=== PATIENT | female | born 1985 ===

== ENCOUNTER 2020-06-24 04:58 | Inpatient (IN) | payer MEDICAID ==
[2020-06-24] MEDS ORDERED: Carboprost Tromethamine 250 MCG/1 ML Amp IM PRN (05:43)
[2020-06-24] MEDS ORDERED: Water For Irrigation,Sterile 1,000 ML Container IRR PRN (05:43)
[2020-06-24] MEDS ORDERED: Sodium Chloride 0.9% 10 ML Syringe FLUSH PRN (05:43)
[2020-06-24] MEDS ORDERED: Sodium Chloride 0.9% 10 ML SDV IV PRN (05:43)
[2020-06-24] MEDS ORDERED: Ondansetron 4 MG/2 ML SDV IVPUSH PRN (05:43)
[2020-06-24] MEDS ORDERED: Sodium Chloride 0.9% 2.5 ML Syringe FLUSH PRN (05:43)
[2020-06-24] MEDS ORDERED: Methylergonovine 0.2 MG/1 ML Amp IM PRN (05:43)
[2020-06-24] MEDS ORDERED: Misoprostol 200 MCG Tab PO PRN (05:43)
[2020-06-24] MEDS ORDERED: Lidocaine 1% 50 ML MDV INJECT PRN (05:43)
[2020-06-24] MEDS ORDERED: Tranexamic Acid 1,000 MG in Sodium Chloride 0.9% 100 ML IV PRN (05:43)
[2020-06-24] MEDS ORDERED: Nalbuphine 10 MG/1 ML Vial IVPUSH PRN (05:43)
[2020-06-24] MEDS ORDERED: Oxytocin/0.9 % Sodium Chloride 30 UNIT/500 ML BAG IV SCH ×2 (05:45→06:00)
[2020-06-24] MEDS ORDERED: Misoprostol 25 MCG (1/4 of 100 MCG) Tab VAG PRN (05:48)
[2020-06-24] MEDS ORDERED: Terbutaline 1 MG/ML SDV SUBCUT PRN (05:48)
[2020-06-24] MEDS ORDERED: Misoprostol 25 MCG (1/4 of 100 MCG) Tab PO PRN (05:48)
--- NOTE | 2020-06-24 07:30 | PCM.PREANE ---
Preanesthetic Assessment - Procedure Proposed Procedure: MIMI - Anesthesia/Transfusion/Family Hx Anesthesia History: Prior Anesthesia Without Reaction (Cholecystectomy under [facility] with no complications, multiple previous successful epidurals. One accidental dural puncture, pt recalls student placement with mult. attempts.) Family History of Anesthesia Reaction: No Transfusion History: No Prior Transfusion(s) Type of Transfusion Reactions: Reports: Unknown Additional History: Previous intubation for gallbladder, denies complications - Review of Systems General: No Symptoms Pulmonary: No Symptoms Cardiovascular: No Symptoms Gastrointestinal: No Symptoms Neurological: No Symptoms Other: Reports: None - Physical Assessment Height: 1.8 m ASA Class: 2 Mental Status: Alert & Oriented x3 Airway Class: Mallampati = 2 Dentition: Reports: Normal Dentition Thyro-Mental Finger Breadths: 4 Mouth Opening Finger Breadths: 3 ROM/Head Extension: Full Lungs: Normal Respiratory Effort Cardiovascular: Regular Rate, Regular Rhythm - Lab Values: Laboratory Last Values WBC 9.51 K/uL (4.0-11.0) 06/24/20 05:25 RBC 3.52 M/uL (4.30-5.90) L 06/24/20 05:25 Hgb 10.7 g/dL (12.0-16.0) L 06/24/20 05:25 Hct 33.2 % (36.0-46.0) L 06/24/20 05:25 MCV 94.3 fL (80.0-98.0) 06/24/20 05:25 MCH 30.4 pg (27.0-32.0) 06/24/20 05:25 MCHC 32.2 g/dL (31.0-37.0) 06/24/20 05:25 RDW Std Deviation 49.7 fl (28.0-62.0) 06/24/20 05:25 RDW Coeff of Esthela 14 % (11.0-15.0) 06/24/20 05:25 Plt Count 246 K/uL (150-400) 06/24/20 05:25 MPV 10.00 fL (7.40-12.00) 06/24/20 05:25 Nucleated RBC % 0.0 /100WBC 06/24/20 05:25 Nucleated RBCs # 0 K/uL 06/24/20 05:25 SARS-CoV-2 RNA (SANDRA) NEGATIVE (NEGATIVE) 06/24/20 05:38 Blood Type O POSITIVE 06/24/20 05:25 Antibody Screen NEGATIVE 06/24/20 05:25 - Allergies Allergies/Adverse Reactions: Allergies Allergy/AdvReac Type Severity Reaction Status Date / Time No Known Allergies Allergy Verified 06/24/20 05:42 - Anesthesia Plan Pre-Op Medication Ordered: None - Acknowledgements Anesthesia Type Planned: Epidural Pt an Appropriate Candidate for the Planned Anesthesia: Yes Alternatives and Risks of Anesthesia Discussed w Pt/Guardian: Yes Pt/Guardian Understands and Agrees with Anesthesia Plan: Yes Additional Comments: Discussed epidural risks, benefits, procedure, maintenance, and anesthesia coverage. All questions answered and concerns addressed. 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: Musculoskeletal History: Reports: None Neurological History: Reports: None Psychiatric History: Reports: None Endocrine/Metabolic History: Reports: None Hematologic History: Reports: None Immunologic History: Reports: None Oncologic (Cancer) History: Reports: None Dermatologic History: Reports: None - Infectious Disease History Infectious Disease History: Reports: Chicken Pox - Past Surgical History Head Surgeries/Procedures: Reports: None HEENT Surgical History: Reports: None Cardiovascular Surgical History: Reports: None Respiratory Surgical History: Reports: None GI Surgical History: Reports: None Female Surgical History: Reports: None Endocrine Surgical History: Reports: None Neurological Surgical History: Reports: None Musculoskeletal Surgical History: Reports: None Oncologic Surgical History: Reports: None Dermatological Surgical History: Reports: None - SUBSTANCE USE Smoking Status *Q: Never Smoker Second Hand Smoke Exposure: No Recreational Drug Use History: No - CURRENT (IN HOUSE) MEDS Current Meds: Current Medications Carboprost Tromethamine (Hemabate Ds) 250 mcg IM ASDIRECTED PRN PRN Reason: Post Hemorrhage Oxytocin/Sodium Chloride (Oxytocin 30 Unit/500 Ml-Ns) 30 unit in 500 mls @ 999 mls/hr IV TITRATE SIXTO Tranexamic Acid 1,000 mg/ (Sodium Chloride) 110 mls @ 660 mls/hr IV ONETIME PRN PRN Reason: Bleeding Lactated Ringer's (Ringers, Lactated) 1,000 mls @ 150 mls/hr IV ASDIRECTED SIXTO Oxytocin/Sodium Chloride (Oxytocin 30 Unit/500 Ml-Ns) 30 unit in 500 mls @ 2 mls/hr IV TITRATE SIXTO; Protocol Lidocaine HCl (Xylocaine 1%) 50 ml INJECT ONETIME PRN PRN Reason: Laceration repair Methylergonovine Maleate (Methergine) 0.2 mg IM ASDIRECTED PRN PRN Reason: Post Hemorrhage Misoprostol (Cytotec) 200 mcg PO ONETIME PRN PRN Reason: Post Hemorrhage Misoprostol (Cytotec) 25 mcg VAG Q4H PRN PRN Reason: Cervical Ripening Last Admin: 06/24/20 06:46 Dose: 25 mcg Documented by: Misoprostol (Cytotec) 25 mcg PO Q4H PRN PRN Reason: Cervical Ripening Last Admin: 06/24/20 06:47 Dose: 25 mcg Documented by: Nalbuphine HCl (Nubain) 10 mg IVPUSH Q1H PRN PRN Reason: Pain (severe 7-10) Ondansetron HCl (Zofran) 4 mg IVPUSH Q6H PRN PRN Reason: Nausea/Vomiting Sodium Chloride (Saline Flush) 10 ml FLUSH ASDIRECTED PRN PRN Reason: Keep Vein Open Sodium Chloride (Saline Flush) 2.5 ml FLUSH ASDIRECTED PRN PRN Reason: Keep Vein Open Sodium Chloride (Normal Saline) 10 ml IV ASDIRECTED PRN PRN Reason: IV Use Sterile Water (Sterile Water For Irrigation) 1,000 ml IRR ASDIRECTED PRN PRN Reason: delivery Terbutaline Sulfate (Brethine) 0.25 mg SUBCUT ASDIRECTED PRN PRN Reason: Tacysystole
--- NOTE | 2020-06-24 07:34 | PCM.LDHP ---
L&D History of Present Illness - General Date of Service: 06/24/20 Admit Problem/Dx: Patient Status Order with Admit Dx/Problem 06/24/20 05:43 Patient Status [ADT] Routine Admission Diagnosis/Problem Admission Diagnosis/Problem 06/24/20 07:27 at 40 2/7 weeks (LAKEISHA: 06/22/20) presenting to L&D for elective IOL; O+, rubella immune, GBS negative; SVE per nurse report: 2-3cm/80%/-1; vertex by Alba [email or web address]'kamlesh Source of Information: Patient History Limitations: Reports: No Limitations - Related Data Allergies/Adverse Reactions: Allergies Allergy/AdvReac Type Severity Reaction Status Date / Time No Known Allergies Allergy Verified 06/24/20 05:42 Past Medical History HEENT History: Reports: None Cardiovascular History: Reports: None Respiratory History: Reports: None Gastrointestinal History: Reports: None Genitourinary History: Reports: None 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: Musculoskeletal History: Reports: None Neurological History: Reports: None Psychiatric History: Reports: None Endocrine/Metabolic History: Reports: None Hematologic History: Reports: None Immunologic History: Reports: None Oncologic (Cancer) History: Reports: None Dermatologic History: Reports: None - Infectious Disease History Infectious Disease History: Reports: Chicken Pox - Past Surgical History Head Surgeries/Procedures: Reports: None HEENT Surgical History: Reports: None Cardiovascular Surgical History: Reports: None Respiratory Surgical History: Reports: None GI Surgical History: Reports: None Female Surgical History: Reports: None Endocrine Surgical History: Reports: None Neurological Surgical History: Reports: None Musculoskeletal Surgical History: Reports: None Oncologic Surgical History: Reports: None Dermatological Surgical History: Reports: None Social & Family History - Family History Family Medical History: Noncontributory - Tobacco Use Smoking Status *Q: Never Smoker Second Hand Smoke Exposure: No - Recreational Drug Use Recreational Drug Use: No H&P Review of Systems - Review of Systems: Review Of Systems: See Below General: Reports: No Symptoms HEENT: Reports: No Symptoms Pulmonary: Reports: No Symptoms Cardiovascular: Reports: No Symptoms Gastrointestinal: Reports: No Symptoms Genitourinary: Reports: No Symptoms Musculoskeletal: Reports: No Symptoms Skin: Reports: No Symptoms Psychiatric: Reports: No Symptoms Neurological: Reports: No Symptoms Hematologic/Lymphatic: Reports: No Symptoms Immunologic: Reports: No Symptoms L&D Exam - Exam Exam: See Below - OB Specific Movement: Active Heart Tones: Present Heart Rate (FHR) Variability: Moderate (6-25 bmp) Presentation: Vertex - Hylton Score Hylton Score Cervix Position: Midposition Hylton Score Consistency: Soft Hylton Score Effacement: >80% Hylton Score Dilation: 3-4 cm Hylton Score 's Station: -1 ,0 Hylton Score Total: 10 - Exam General: Alert, Oriented, Cooperative Lungs: Normal Respiratory Effort Cardiovascular: Regular Rate, Regular Rhythm GI/Abdominal Exam: Soft, Non-Tender Rectal Exam: Deferred Genitourinary: Deferred Back Exam: Normal Inspection, Full Range of Motion Extremities: Normal Inspection, Normal Range of Motion, Non-Tender, Normal Capillary Refill Skin: Warm, Dry, Intact Neurological: Strength Equal Bilateral, Normal Speech, Normal Tone, Sensation Intact Psychiatric: Alert, Normal Affect, Normal Mood - Patient Data Lab Results Last 24 hrs: Laboratory Results - last 24 hr 06/24/20 06/24/20 06/24/20 Range/Units 05:25 05:25 05:38 WBC 9.51 (4.0-11.0) K/uL RBC 3.52 L (4.30-5.90) M/uL Hgb 10.7 L (12.0-16.0) g/dL Hct 33.2 L (36.0-46.0) % MCV 94.3 (80.0-98.0) fL MCH 30.4 (27.0-32.0) pg MCHC 32.2 (31.0-37.0) g/dL RDW Std Deviation 49.7 (28.0-62.0) fl RDW Coeff of Esthela 14 (11.0-15.0) % Plt Count 246 (150-400) K/uL MPV 10.00 (7.40-12.00) fL Nucleated RBC % 0.0 /100WBC Nucleated RBCs # 0 K/uL SARS-CoV-2 RNA (SANDRA) NEGATIVE (NEGATIVE) Blood Type O POSITIVE Antibody Screen NEGATIVE Result Diagrams: 06/24/20 05:25 - Problem List (1) Supervision of normal IUP (intrauterine ) in multigravida SNOMED Code(s): 925427342, 419722118, 964967624 ICD Code: Z34.80 - ENCOUNTER FOR SUPRVSN OF NORMAL , UNSP TRIMESTER Status: Acute Priority: High Current Visit: Yes Qualifiers: Trimester: third trimester Qualified Code(s): Z34.83 - Encounter for supervision of other normal , third trimester Problem List Initiated/Reviewed/Updated: Yes Orders Last 24hrs: Active Orders 24 hr Category Date Time Status Patient Status [ADT] Routine ADT 06/24/20 05:43 Active Bedrest Bathroom Privileges [RC] ASDIRECTED Care 06/24/20 05:49 Active Communication Order [RC] ASDIRECTED Care 06/24/20 05:49 Active Communication Order [RC] ASDIRECTED Care 06/24/20 05:49 Active Heart Tones [RC] CONTINUOUS Care 06/24/20 05:43 Active Non Stress Test [RC] PER UNIT ROUTINE Care 06/24/20 05:43 Active May Shower [RC] ASDIRECTED Care 06/24/20 05:43 Active Notify Provider [RC] PRN Care 06/24/20 05:43 Active Notify Provider [RC] PRN Care 06/24/20 05:49 Active Notify Provider [RC] PRN Care 06/24/20 05:49 Active Notify Provider [RC] STAT Care 06/24/20 05:49 Active Oxygen Therapy [RC] ASDIRECTED Care 06/24/20 05:49 Active Up ad [place] [RC] ASDIRECTED Care 06/24/20 05:43 Active Vaginal Exam [RC] PRN Care 06/24/20 05:43 Active Vaginal Exam [RC] PRN Care 06/24/20 05:49 Active Vital Signs [RC] PER UNIT ROUTINE Care 06/24/20 05:43 Active Vital Signs [RC] PER UNIT ROUTINE Care 06/24/20 05:49 Active Regular Diet [DIET] Diet 06/24/20 Breakfast Active RPR (SYPHILIS SERO) W/ RFLX [REF] Routine Lab 06/24/20 05:25 Received Carboprost Tromethamine [Hemabate DS] Med 06/24/20 05:43 Active 250 mcg IM ASDIRECTED PRN Lactated Ringers [Ringers, Lactated] 1,000 ml Med 06/24/20 05:45 Active IV ASDIRECTED Lidocaine 1% [Xylocaine 1%] Med 06/24/20 05:43 Active 50 ml INJECT ONETIME PRN Methylergonovine [Methergine] Med 06/24/20 05:43 Active 0.2 mg IM ASDIRECTED PRN Nalbuphine [Nubain] Med 06/24/20 05:43 Active 10 mg IVPUSH Q1H PRN Ondansetron [Zofran] Med 06/24/20 05:43 Active 4 mg IVPUSH Q6H PRN Oxytocin/0.9 % Sodium Chloride [Oxytocin 30 Unit/500 ML Med 06/24/20 05:45 Active -NS] 30 unit in 500 ml IV TITRATE Oxytocin/0.9 % Sodium Chloride [Oxytocin 30 Unit/500 ML Med 06/24/20 06:00 Active -NS] 30 unit in 500 ml IV TITRATE Sodium Chloride 0.9% [Normal Saline] Med 06/24/20 05:43 Active 10 ml IV ASDIRECTED PRN Sodium Chloride 0.9% [Saline Flush] Med 06/24/20 05:43 Active 10 ml FLUSH ASDIRECTED PRN Sodium Chloride 0.9% [Saline Flush] Med 06/24/20 05:43 Active 2.5 ml FLUSH ASDIRECTED PRN Terbutaline [Brethine] Med 06/24/20 05:48 Active 0.25 mg SUBCUT ASDIRECTED PRN Tranexamic Acid [Cyklokapron] 1,000 mg Med 06/24/20 05:43 Active Sodium Chloride 0.9% [Normal Saline] 100 ml IV ONETIME Water For Irrigation,Sterile [Sterile Water for Med 06/24/20 05:43 Active Irrigation] 1,000 ml IRR ASDIRECTED PRN miSOPROStoL [Cytotec] Med 06/24/20 05:43 Active 200 mcg PO ONETIME PRN miSOPROStoL [Cytotec] Med 06/24/20 05:48 Active 25 mcg PO Q4H PRN miSOPROStoL [Cytotec] Med 06/24/20 05:48 Active 25 mcg VAG Q4H PRN Scalp Electrode [WOMSER] Per Unit Routine Oth 06/24/20 05:43 Ordered Medication Administration Instruction [OM.PC] Q3H Oth 06/24/20 06:00 Ordered Peripheral IV Insertion Adult [OM.PC] Routine Oth 06/24/20 05:43 Ordered Resuscitation Status Routine Resus Stat 10/12/20 05:43 Ordered Medication Orders Carboprost Tromethamine (Hemabate Ds) 250 mcg IM ASDIRECTED PRN PRN Reason: Post Hemorrhage Oxytocin/Sodium Chloride (Oxytocin 30 Unit/500 Ml-Ns) 30 unit in 500 mls @ 999 mls/hr IV TITRATE SIXTO Tranexamic Acid 1,000 mg/ (Sodium Chloride) 110 mls @ 660 mls/hr IV ONETIME PRN PRN Reason: Bleeding Lactated Ringer's (Ringers, Lactated) 1,000 mls @ 150 mls/hr IV ASDIRECTED SIXTO Oxytocin/Sodium Chloride (Oxytocin 30 Unit/500 Ml-Ns) 30 unit in 500 mls @ 2 mls/hr IV TITRATE SIXTO; Protocol Lidocaine HCl (Xylocaine 1%) 50 ml INJECT ONETIME PRN PRN Reason: Laceration repair Methylergonovine Maleate (Methergine) 0.2 mg IM ASDIRECTED PRN PRN Reason: Post Hemorrhage Misoprostol (Cytotec) 200 mcg PO ONETIME PRN PRN Reason: Post Hemorrhage Misoprostol (Cytotec) 25 mcg VAG Q4H PRN PRN Reason: Cervical Ripening Last Admin: 06/24/20 06:46 Dose: 25 mcg Documented by: SHELLY Misoprostol (Cytotec) 25 mcg PO Q4H PRN PRN Reason: Cervical Ripening Last Admin: 06/24/20 06:47 Dose: 25 mcg Documented by: SHELLY Nalbuphine HCl (Nubain) 10 mg IVPUSH Q1H PRN PRN Reason: Pain (severe 7-10) Ondansetron HCl (Zofran) 4 mg IVPUSH Q6H PRN PRN Reason: Nausea/Vomiting Sodium Chloride (Saline Flush) 10 ml FLUSH ASDIRECTED PRN PRN Reason: Keep Vein Open Sodium Chloride (Saline Flush) 2.5 ml FLUSH ASDIRECTED PRN PRN Reason: Keep Vein Open Sodium Chloride (Normal Saline) 10 ml IV ASDIRECTED PRN PRN Reason: IV Use Sterile Water (Sterile Water For Irrigation) 1,000 ml IRR ASDIRECTED PRN PRN Reason: delivery Terbutaline Sulfate (Brethine) 0.25 mg SUBCUT ASDIRECTED PRN PRN Reason: Tacysystole Assessment/Plan Comment:: Admit A: at 40 2/7 weeks (LAKEISHA: 06/22/20) presenting to L&D for elective IOL; O+, rubella immune, GBS negative; SVE per nurse report: 2-3cm/80%/-1; vertex by Raf's P: Induction of labor; cytotec to pitocin PRN; epidural PRN; anticipate ; Dr. Wheeler updated.
[2020-06-24] MEDS: Lactated Ringers 1,000 ML IV SCH ×2 (10:25→11:30)
[2020-06-24] MEDS ORDERED: Ropivacaine HCl/PF 100 ML ONE (10:31)
[2020-06-24] MEDS ORDERED: fentaNYL 100 MCG/2 ML SDV ONE (10:31)
[2020-06-24] MEDS ORDERED: ePHEDrine 50 MG/ML SDV ONE (11:46)
--- NOTE | 2020-06-24 11:57 | PCM.SN.2 ---
- Free Text/Narrative Note: Anesthesia epidural time [id number] 1044- bedside LDR 2. Epidural risks, benefits, procedure, maintenance, and anesthesia coverage discussed. All questions answered and concerns addressed. Consent signed with RN witness. 1052- sitting with pulse ox., BP, and FHR mon.. Sterile prep. and drape. Localization with 2.5ml 1% lido. Attempt #1 (L2-3) met os despite redirection, removed. Pt very anxious and tearful but able to maintain positioning. Guided breathing and imagery, calms with verbal support. Attempt #2 (L2-3) CATHERINE with saline at 6.5 cm, catheter threaded without resistance, no paresthesias. Aspiration resulted in small amount of heme. No test dose given, catheter pulled. Pt allowed to move/reposition/stretch. VS remain stable. 1105- re-prepped and draped, localization with 2.5ml 1% lido, attempt #3 (L3-4) met with os despite redirection, Tuohy removed. Attempt #4 (L3-4) successful. CATHERINE at 6.5 cm, 1115 catheter threaded without resistance or paresthesias to 14cm. Negative to aspiration for both CSF and heme, 117- negative test dose (3ml 1.5% lido. with 1:200,000 epi), vss. 1123- sterile tegaderm dressing applied, and cloth tape to secure. 1128-negative to aspiration again, bolus of remaining 2ml from test dose, as well as 5ml ropivicaine. Gtt started (0.2% ropivicaine with 2mcg/ml Fentanyl at 8ml/hr, 4ml DEMURRAGE CLERK option q 10 min with 34ml/hr lockout). 1141- assessed at T10 level. Pt resting comfortable. Roughly 10 min following bolus and gtt start, pt's in terry reporting pt is "feeling weird." NUTRITION AND DIETETICS INSTRUCTOR directly to room, pt noted to be pale. Speaking coherently, unable to report symptoms other than "I feel like I'm going to pass out." BP cycled, HR stable per pulse ox. crash cart brought to room, ambu bag for O2. Pt remained breathing, but became obtunded for a short period. Code called to summon assistance. See EMR for VS. HR elevated in 120's, BP 70's, SAT 95-100, remained in sinus rhythm. 5mg ephedrine given, fluid bolus given, appeared to be taking adequate TV but assisted with ambu bag. Became alert within 15-20 seconds. Denied SOB, trimming inspector strength moderate, able to wiggle toes a nd lift legs off bed. Put on 10L SM, VSS. Epidural to remain off and disconnected for the time being. Pt reports feeling much better. Epidural level at 1215 remained T9 to T10.
--- NOTE | 2020-06-24 14:37 | PCM.DEL ---
L & D Note - General Info Date of Service: 06/24/20 Mother's Due Date: 06/22/20 - Delivery Note Labor: Augmented by Oxytocin Cervical Ripening Method: Misoprostil Delivery Outcome: Livebirth Delivery Method: Spontaneous Vaginal Delivery-Single Infant Delivery Mode: Spontaneous Presentation: Vertex Nuchal Cord: None Anesthesia Type: None Amniotic Fluid Description: Meconium Stained Episiotomy Type: None Laceration: None Placenta: Intact, Spontaneous Cord: 3 Vessels Estimated Blood Loss: 150 Resuscitation Needed: No Score 1 min: 9 Score 5 min: 9 Second Stage Interventions: Reports: Pushing, Pulls Own Legs Back Delivery Comments (Free Text/Narrative):: of viable male, head delivered without pushing, the nurse delivered the body. I arrived one minuet later. Cord clamped and cut. Cord blood collected. Placenta delivered grossly intact. Inspection noted intact perineum. EBL 150cc, APGARS 9/9, wt pending. - General Info Date of Service: 06/24/20 Admission Dx/Problem (Free Text): Patient Status Order with Admit Dx/Problem 06/24/20 05:43 Patient Status [ADT] Routine Admission Diagnosis/Problem Admission Diagnosis/Problem 06/24/20 07:27 at 40 2/7 weeks (LAKEISHA: 06/22/20) presenting to L&D for elective IOL; O+, rubella immune, GBS negative; SVE per nurse report: 2-3cm/80%/-1; vertex by Raf's Functional Status: Reports: Pain Controlled, Tolerating Diet - Review of Systems General: Reports: No Symptoms HEENT: Reports: No Symptoms Pulmonary: Reports: No Symptoms Cardiovascular: Reports: No Symptoms Gastrointestinal: Reports: No Symptoms Genitourinary: Reports: No Symptoms Musculoskeletal: Reports: No Symptoms Skin: Reports: No Symptoms Neurological: Reports: No Symptoms Psychiatric: Reports: No Symptoms - Patient Data Weight - Most Recent: 127.006 kg Lab Results Last 24 Hours: Laboratory Results - last 24 hr 06/24/20 06/24/20 06/24/20 Range/Units 05:25 05:25 05:38 WBC 9.51 (4.0-11.0) K/uL RBC 3.52 L (4.30-5.90) M/uL Hgb 10.7 L (12.0-16.0) g/dL Hct 33.2 L (36.0-46.0) % MCV 94.3 (80.0-98.0) fL MCH 30.4 (27.0-32.0) pg MCHC 32.2 (31.0-37.0) g/dL RDW Std Deviation 49.7 (28.0-62.0) fl RDW Coeff of Esthela 14 (11.0-15.0) % Plt Count 246 (150-400) K/uL MPV 10.00 (7.40-12.00) fL Nucleated RBC % 0.0 /100WBC Nucleated RBCs # 0 K/uL SARS-CoV-2 RNA (SANDRA) NEGATIVE (NEGATIVE) Blood Type O POSITIVE Antibody Screen NEGATIVE Med Orders - Current: Current Medications Carboprost Tromethamine (Hemabate Ds) 250 mcg IM ASDIRECTED PRN PRN Reason: Post Hemorrhage Oxytocin/Sodium Chloride (Oxytocin 30 Unit/500 Ml-Ns) 30 unit in 500 mls @ 999 mls/hr IV TITRATE SIXTO Tranexamic Acid 1,000 mg/ (Sodium Chloride) 110 mls @ 660 mls/hr IV ONETIME PRN PRN Reason: Bleeding Lactated Ringer's (Ringers, Lactated) 1,000 mls @ 150 mls/hr IV ASDIRECTED SIXTO Last Admin: 06/24/20 10:25 Dose: 999 mls/hr Documented by: Oxytocin/Sodium Chloride (Oxytocin 30 Unit/500 Ml-Ns) 30 unit in 500 mls @ 2 m ls/hr IV TITRATE SIXTO; Protocol Last Titration: 06/24/20 13:18 Dose: 4 munits/min, 4 mls/hr Documented by: Lidocaine HCl (Xylocaine 1%) 50 ml INJECT ONETIME PRN PRN Reason: Laceration repair Methylergonovine Maleate (Methergine) 0.2 mg IM ASDIRECTED PRN PRN Reason: Post Hemorrhage Misoprostol (Cytotec) 200 mcg PO ONETIME PRN PRN Reason: Post Hemorrhage Misoprostol (Cytotec) 25 mcg VAG Q4H PRN PRN Reason: Cervical Ripening Last Admin: 06/24/20 06:46 Dose: 25 mcg Documented by: Misoprostol (Cytotec) 25 mcg PO Q4H PRN PRN Reason: Cervical Ripening Last Admin: 06/24/20 06:47 Dose: 25 mcg Documented by: Nalbuphine HCl (Nubain) 10 mg IVPUSH Q1H PRN PRN Reason: Pain (severe 7-10) Ondansetron HCl (Zofran) 4 mg IVPUSH Q6H PRN PRN Reason: Nausea/Vomiting Sodium Chloride (Saline Flush) 10 ml FLUSH ASDIRECTED PRN PRN Reason: Keep Vein Open Sodium Chloride (Saline Flush) 2.5 ml FLUSH ASDIRECTED PRN PRN Reason: Keep Vein Open Sodium Chloride (Normal Saline) 10 ml IV ASDIRECTED PRN PRN Reason: IV Use Sterile Water (Sterile Water For Irrigation) 1,000 ml IRR ASDIRECTED PRN PRN Reason: delivery Terbutaline Sulfate (Brethine) 0.25 mg SUBCUT ASDIRECTED PRN PRN Reason: Tacysystole Discontinued Medications Ephedrine Sulfate (Ephedrine Sulfate) Confirm Administered Dose 50 mg .ROUTE .STK-MED ONE Stop: 06/24/20 11:47 Fentanyl (Sublimaze) Confirm Administered Dose 200 mcg .ROUTE .STK-MED ONE Stop: 06/24/20 10:32 Ropivacaine (Naropin 0.2%) Confirm Administered Dose 100 mls @ as directed .ROUTE .STK-MED ONE Stop: 06/24/20 10:32 - Exam General: Alert, Oriented, Cooperative Lungs: Normal Respiratory Effort GI/Abdominal Exam: Soft, Non-Tender, Pelvis Stable (Female) Exam: Normal External Exam, Normal Bimanual Exam, Vaginal Bleeding. No: Vaginal Lesions, Vaginal Tears Back Exam: Normal Inspection, Full Range of Motion Extremities: Normal Inspection, Normal Range of Motion, Non-Tender, No Pedal Edema Skin: Warm, Dry, Intact Wound/Incisions: Healing Well Neurological: No New Focal Deficit, Normal Speech, Normal Tone Psy/Mental Status: Alert, Normal Affect, Normal Mood - Problem List & Annotations (1) (normal spontaneous vaginal delivery) SNOMED Code(s): 66006349, 873640160 Code(s): O80 - ENCOUNTER FOR FULL-TERM UNCOMPLICATED DELIVERY Status: Acute Priority: High Current Visit: Yes (2) Supervision of normal IUP (intrauterine ) in multigravida SNOMED Code(s): 988230056, 653563852, 929997046 Code(s): Z34.80 - ENCOUNTER FOR SUPRVSN OF NORMAL , UNSP TRIMESTER Status: Acute Priority: High Current Visit: Yes Qualifiers: Trimester: third trimester Qualified Code(s): Z34.83 - Encounter for supervision of other normal , third trimester - Problem List Review Problem List Initiated/Reviewed/Updated: Yes - Plan Plan:: Admit A: at 40 2/7 weeks (LAKEISHA: 06/22/20) presenting to L&D for elective IOL; O+, rubella immune, GBS negative; SVE per nurse report: 2-3cm/80%/-1; vertex by Raf's P: Induction of labor; cytotec to pitocin PRN; epidural PRN; anticipate ; Dr. Wheeler updated. Delivery A: of male, APGARS 9/9, Wt pending. Intact, EBL 150cc. Stable P: Routine pp plan of care
[2020-06-24] MEDS ORDERED: Witch Hazel Medicated Pads 40/Jar TOP PRN (14:43)
[2020-06-24] MEDS ORDERED: Bisacodyl 10 MG Supp RECTAL PRN (14:43)
[2020-06-24] MEDS ORDERED: Ibuprofen 800 MG Tab PO PRN (14:43)
[2020-06-24] MEDS ORDERED: oxyCODONE 5 MG Tab PO PRN (14:43)
[2020-06-24] MEDS ORDERED: Ibuprofen 400 MG Tab PO PRN (14:43)
[2020-06-24] MEDS ORDERED: Lanolin 100% Cream 7 GM Tube TOP PRN (14:43)
[2020-06-24] MEDS ORDERED: Benzocaine/Menthol 20%-0.5% Spray 78 GM Cannister TOP PRN (14:43)
[2020-06-24] MEDS ORDERED: Acetaminophen 500 MG Tab PO PRN ×2 (14:43)
[2020-06-24] MEDS: Docusate Sodium 100 MG Cap PO PRN (20:40)
--- NOTE | 2020-06-25 07:34 | PCM48HPAN ---
Post Anesthesia Note - EVALUATION WITHIN 48HRS OF ANESTHETIC Vital Signs in Normal Range: Yes Patient Participated in Evaluation: Yes Respiratory Function Stable: Yes Airway Patent: Yes Cardiovascular Function Stable: Yes Hydration Status Stable: Yes Pain Control Satisfactory: Yes (Reports no pain at rest, 3-4/10 with activity, well-controlled) Nausea and Vomiting Control Satisfactory: Yes (Denies any N/V, taking PO food and fluid well) Mental Status Recovered: Yes Vital Signs: Last Vital Signs Temp 37.1 C 06/24/20 20:37 Pulse 95 06/24/20 20:37 Resp 20 06/24/20 20:37 BP 115/62 06/24/20 20:37 Pulse Ox - COMMENTS/OBSERVATIONS Free Text/Narrative:: Pt sitting upright in bed and conversant, with positive affect. She and thanked [employer]OOK[employer]ER for care previous day. Stated she has felt well taken care of, and appears calm and content. Ambulating well with full return of sensation and function of BLE per patient, and some right hip pain (which was a concern of her yesterday) has been relieved. Mild lumbar soreness at epidural site. No aberrancies at site.
[2020-06-25] MEDS: Docusate Sodium 100 MG Cap PO PRN (09:28)
--- NOTE | 2020-06-25 09:30 | PCM.DCSUM1 ---
Discharge Summary - Hospital Course Free Text/Narrative:: Discharge home with . Follow up in 6 weeks for visit. Diagnosis: Stroke: No Modified [place] Scale: No Symptoms at All Modified [place] Scale Score: 0 - Discharge Data Discharge Date: 06/25/20 Discharge Disposition: Home, Self-Care 01 Condition: Good - Referral to Home Health Primary Care Physician: PCP None - Discharge Diagnosis/Problem(s) (1) (normal spontaneous vaginal delivery) SNOMED Code(s): 35185974, 138802651 ICD Code: O80 - ENCOUNTER FOR FULL-TERM UNCOMPLICATED DELIVERY Status: Acute Priority: High Current Visit: Yes (2) Supervision of normal IUP (intrauterine ) in multigravida SNOMED Code(s): 864168246, 816799766, 305615013 ICD Code: Z34.80 - ENCOUNTER FOR SUPRVSN OF NORMAL , UNSP TRIMESTER Status: Acute Priority: High Current Visit: Yes Qualifiers: Trimester: third trimester Qualified Code(s): Z34.83 - Encounter for superv ision of other normal , third trimester - Patient Instructions Diet: Usual Diet as Tolerated Activity: As Tolerated, No Strenuous Activities, Rest and Relax Today Driving: May Drive Today Showering/Bathing: May Shower Notify Provider of: Fever, Increased Pain, Swelling and Redness, Nausea and/or Vomiting Other/Special Instructions: Discharge home with . Follow up in 6 weeks for visit. - Discharge Plan *PRESCRIPTION DRUG MONITORING PROGRAM REVIEWED*: Not Applicable *COPY OF PRESCRIPTION DRUG MONITORING REPORT IN PATIENT MYKE: Not Applicable Home Medications: Home Meds Pnv #30/Iron Carb&Aspg/Fa/Om3 [OB Complete with DHA Softgel] 06/24/20 [History] Oxygen Therapy Mode: Room Air Patient Handouts: Baby Blues, Care After Vaginal Delivery Referrals: [facility] [Outside] Germania Zabala, NYLAM, [employer] [Mid-] - 08/05/20 2:00 pm - Discharge Summary/Plan Comment DC Time >30 min.: Yes - General Info Date of Service: 06/25/20 Admission Dx/Problem (Free Text: Patient Status Order with Admit Dx/Problem 06/24/20 05:43 Patient Status [ADT] Routine Admission Diagnosis/Problem Admission Diagnosis/Problem 06/24/20 07:27 at 40 2/7 weeks (LAKEISHA: 06/22/20) presenting to L&D for elective IOL; O+, rubella immune, GBS negative; SVE per nurse report: 2-3cm/80%/-1; vertex by Raf'kamlesh Functional Status: Reports: Pain Controlled, Tolerating Diet, Ambulating, Urinating - Review of Systems General: Reports: No Symptoms HEENT: Reports: No Symptoms Pulmonary: Reports: No Symptoms Cardiovascular: Reports: No Symptoms Gastrointestinal: Reports: No Symptoms Genitourinary: Reports: No Symptoms Musculoskeletal: Reports: No Symptoms Skin: Reports: No Symptoms Neurological: Reports: No Symptoms Psychiatric: Reports: No Symptoms - Patient Data Vitals - Most Recent: Last Vital Signs Temp 36.1 C 06/25/20 08:53 Pulse 83 06/25/20 08:53 Resp 16 06/25/20 08:53 BP 112/71 06/25/20 08:53 Pulse Ox 98 06/25/20 08:53 Weight - Most Recent: 127.006 kg Med Orders - Current: Current Medications Acetaminophen (Tylenol Extra Strength) 500 mg PO Q4H PRN PRN Reason: Pain Acetaminophen (Tylenol Extra Strength) 1,000 mg PO Q4H PRN PRN Reason: Pain Benzocaine/Menthol (Dermoplast Pain Relief 20%-0.5% [place]) 78 gm TOP ASDIRECTED PRN PRN Reason: Perineal Comfort Measure Bisacodyl (Dulcolax) 10 mg RECTAL ONETIME PRN PRN Reason: Constipation Docusate Sodium (Colace) 100 mg PO BID PRN PRN Reason: Constipation Last Admin: 06/25/20 09:28 Dose: 100 mg Documented by: Emollient Ointment (Lansinoh Hpa) 0 gm TOP ASDIRECTED PRN PRN Reason: Sore Nipples Ibuprofen (Motrin) 400 mg PO Q4H PRN PRN Reason: Pain Ibuprofen (Motrin) 800 mg PO Q6H PRN PRN Reason: Pain Last Admin: 06/24/20 17:33 Dose: 800 mg Documented by: Oxycodone HCl (Oxycodone) 5 mg PO Q2H PRN PRN Reason: Pain Witch Aleyda (Tucks) 1 pad TOP ASDIRECTED PRN PRN Reason: comfort care Discontinued Medications Carboprost Tromethamine (Hemabate Ds) 250 mcg IM ASDIRECTED PRN PRN Reason: Post Hemorrhage Ephedrine Sulfate (Ephedrine Sulfate) Confirm Administered Dose 50 mg .ROUTE .STK-MED ONE Stop: 06/24/20 11:47 Fentanyl (Sublimaze) Confirm Administered Dose 200 mcg .ROUTE .STK-MED ONE Stop: 06/24/20 10:32 Oxytocin/Sodium Chloride (Oxytocin 30 Unit/500 Ml-Ns) 30 unit in 500 mls @ 999 mls/hr IV TITRATE SIXTO Tranexamic Acid 1,000 mg/ (Sodium Chloride) 110 mls @ 660 mls/hr IV ONETIME PRN PRN Reason: Bleeding Lactated Ringer's (Ringers, Lactated) 1,000 mls @ 150 mls/hr IV ASDIRECTED SIXTO Last Infusion: 06/24/20 13:30 Dose: Infused Documented by: Oxytocin/Sodium Chloride (Oxytocin 30 Unit/500 Ml-Ns) 30 unit in 500 mls @ 2 mls/hr IV TITRATE SIXTO; Protocol Last Titration: 06/24/20 14:16 Dose: 999 munits/min, 999 mls/hr Documented by: Ropivacaine (Naropin 0.2%) Confirm Administered Dose 100 mls @ as directed .ROUTE .STK-MED ONE Stop: 06/24/20 10:32 Lidocaine HCl (Xylocaine 1%) 50 ml INJECT ONETIME PRN PRN Reason: Laceration repair Methylergonovine Maleate (Methergine) 0.2 mg IM ASDIRECTED PRN PRN Reason: Post Hemorrhage Misoprostol (Cytotec) 200 mcg PO ONETIME PRN PRN Reason: Post Hemorrhage Misoprostol (Cytotec) 25 mcg VAG Q4H PRN PRN Reason: Cervical Ripening Last Admin: 06/24/20 06:46 Dose: 25 mcg Documented by: Misoprostol (Cytotec) 25 mcg PO Q4H PRN PRN Reason: Cervical Ripening Last Admin: 06/24/20 06:47 Dose: 25 mcg Documented by: Nalbuphine HCl (Nubain) 10 mg IVPUSH Q1H PRN PRN Reason: Pain (severe 7-10) Ondansetron HCl (Zofran) 4 mg IVPUSH Q6H PRN PRN Reason: Nausea/Vomiting Sodium Chloride (Saline Flush) 10 ml FLUSH ASDIRECTED PRN PRN Reason: Keep Vein Open Sodium Chloride (Saline Flush) 2.5 ml FLUSH ASDIRECTED PRN PRN Reason: Keep Vein Open Sodium Chloride (Normal Saline) 10 ml IV ASDIRECTED PRN PRN Reason: IV Use Sterile Water (Sterile Water For Irrigation) 1,000 ml IRR ASDIRECTED PRN PRN Reason: delivery Terbutaline Sulfate (Brethine) 0.25 mg SUBCUT ASDIRECTED PRN PRN Reason: Tacysystole - Exam General: Reports: Alert, Oriented Lungs: Reports: Normal Respiratory Effort GI/Abdominal Exam: Soft, Non-Tender, Pelvis Stable (Female) Exam: Deferred, Vaginal Bleeding Rectal (Female) Exam: Deferred Back Exam: Reports: Full Range of Motion Extremities: Normal Range of Motion, No Pedal Edema Skin: Reports: Warm, Dry, Intact Neurological: Reports: No New Focal Deficit, Normal Speech, Normal Tone, Strength Equal Bilateral, Sensation Intact Psy/Mental Status: Reports: Alert, Normal Affect, Normal Mood
== END 2020-06-25 17:45 | disposition home or self-care (01) | DRG 807 ==
LOC: MW.OBCHECK 04:58 → MW.OB 04:59 → OBSVTOIN 14:44 → MW.OB 14:44
PROVIDERS: ADMIT Obstetrics & Gynecology; ATTEND Obstetrics & Gynecology
PROC: 10E0XZZ Delivery of Products of Conception, External Approach (ICD-10-PCS; principal; 2020-06-24)
PROC: 10907ZC Drainage of Amniotic Fluid, Therapeutic from Products of Conception, Via Natural or Artificial Opening (ICD-10-PCS; 2020-06-24)
PROC: 3E0P7VZ Introduction of Hormone into Female Reproductive, Via Natural or Artificial Opening (ICD-10-PCS; 2020-06-24)
PROC: 3E0R3BZ Introduction of Anesthetic Agent into Spinal Canal, Percutaneous Approach (ICD-10-PCS; 2020-06-24)
PROC: 00HU33Z Insertion of Infusion Device into Spinal Canal, Percutaneous Approach (ICD-10-PCS; 2020-06-24)
PROC: 0KQM0ZZ Repair Perineum Muscle, Open Approach (ICD-10-PCS; 2020-06-24)
DX: O48.0 Post-term pregnancy (principal); Z37.0 Single live birth; Z3A.40 40 weeks gestation of pregnancy; O77.0 Labor and delivery complicated by meconium in amniotic fluid; Z20.828 Contact with and (suspected) exposure to other viral communicable diseases
CPT/HCPCS: 36415; 51702; 59025; 59409; 85027; 86592; 86850; 86900; 86901; A9270-GY; J2590; J7120; U0002